=== PATIENT | male | born 1960 | race Two or more races ===

== ENCOUNTER 2022-05-29 17:41 | Emergency (ER) | payer SELFPAY ==
[~2022-05-29] VITALS: Ht 160 cm; Wt 81.2 kg
[2022-05-29] MEDS ORDERED: LORAZEPAM 1 MG TABLET ONE (18:53)
[2022-05-29] MEDS ORDERED: LORAZEPAM 0.5 MG TABLET PO ONE (19:00)
--- NOTE | 2022-05-29 19:05 | NUR ---
Received report from MARYURI Grossman.
[2022-05-29 19:29] LABS: MEAN CORPUSCULAR HEMOGLOBIN 31.1 uug (23.8-33.4); MEAN CORPUSCULAR VOLUME 91.3 fL (73.0-96.2); PLATELET COUNT (AUTO) 200 K/uL (152-348)
[2022-05-29 19:42] LABS: CREATININE 1.1 mg/dL (0.6-1.3); MAGNESIUM 2.3 mg/dL (1.8-2.4); POTASSIUM 3.3 mmol/L (3.5-5.1)
[2022-05-29] MEDS ORDERED: LORA-259 PO (19:54)
[2022-05-29] MEDS ORDERED: POTASSIUM BICARBONATE/CIT AC 25 MEQ TABLET.EFF PO ONE (20:00)
--- NOTE | 2022-05-29 20:21 | NUR ---
Patient discharged to home in stable condition. A/O x 4. NAD noted. Ambulatory with a steady gait. All belongings with patient. Written and verbal after care instructions given. Patient verbalizes understanding of instructions. Stressed follow up or return to ER for worsening s/s.
[2022-05-29 20:24] VITALS: BP 129/85
== END 2022-05-29 20:21 | disposition home or self-care (01) ==
LOC: ER 17:41
DX: F41.9 Anxiety disorder, unspecified (principal); E87.6 Hypokalemia; R94.31 Abnormal electrocardiogram [ECG] [EKG]
CPT/HCPCS: 36415; 83735; 85025; 93005; A4663

== ENCOUNTER 2023-07-02 11:39 | Emergency (ER) | payer MEDICAID, MEDICARE ==
[~2023-07-02] VITALS: Ht 165.1 cm; Wt 83.5 kg
[~2023-07-02 11:39] MED LIST: LORA-259 PO
[2023-07-02 12:29] LABS: *BILIRUBIN,URIN NEGATIVE (NEGATIVE); *BLOOD, URINE NEGATIVE (NEGATIVE); *CLARITY,URINE CLEAR (CLEAR); *COLOR,URINE YELLOW (YELLOW); *KETONES,URINE TRACE (NEGATIVE); *PROTEIN,URINE NEGATIVE (NEGATIVE); *UROBILINOGEN,URINE 0.2 E.U./dl (NORMAL); LEUKOCYTE ESTERASE ,URINE NEGATIVE (NEGATIVE); NITRITE, URINE NEGATIVE (NEGATIVE); UGLUCOSE NEGATIVE (NEGATIVE)
[2023-07-02] MEDS ORDERED: LIDOCAINE VISCUS 2% 15 ML UDC ONE (12:33)
[2023-07-02] MEDS ORDERED: MAG HYDROX/AL HYDROX/SIMETH 30 ML LIQUID UDC ONE (12:33)
[2023-07-02] MEDS ORDERED: FAMOTIDINE. 20 MG/2 ML VIAL IV ONE (12:33)
[2023-07-02] MEDS: FAMOTIDINE. 20 MG/2 ML VIAL IV ONE (12:42)
[2023-07-02] MEDS: LIDOCAINE VISCUS 2% 15 ML UDC MM ONE (12:42)
[2023-07-02] MEDS: MAG HYDROX/AL HYDROX/SIMETH 30 ML LIQUID UDC PO ONE (12:42)
[2023-07-02 12:46] LABS: BASOPHILS # (AUTO) 0.1 K/UL (0.0-0.2); BASOPHILS % (AUTO) 1.2 % (0.0-2.0); EOSINOPHILS # (AUTO) 0.2 K/uL (0.0-0.7); EOSINOPHILS % (AUTO) 3.6 % (0.0-7.0); HEMATOCRIT 41.8 % (36.7-47.1); HEMOGLOBIN 14.3 g/dL (12.5-16.3); LYMPHOCYTES # (AUTO) 2.2 K/uL (0.8-4.8); LYMPHOCYTES % (AUTO) 39.2 % (20.5-51.5); MEAN CORPUSCULAR HEMOGLOBIN 31.2 uug (23.8-33.4); MEAN CORPUSCULAR HGB CONC 34 g/dL (32.5-36.3); MEAN CORPUSCULAR VOLUME 91.2 fL (73.0-96.2); MONOCYTES # (AUTO) 0.6 K/uL (0.1-1.30); MONOCYTES % (AUTO) 9.9 % (0.0-11.0); NEUTROPHILS # (AUTO) 2.6 K/uL (1.8-8.9); NEUTROPHILS % (AUTO) 46.1 % (38.5-71.5); PLATELET COUNT (AUTO) 182 K/uL (152-348); RED BLOOD CELL COUNT(AUTO) 4.58 MIL/uL (4.06-5.63); RED CELL DISTRIBUTION WIDTH 13.2 % (12.1-16.2); WHITE BLOOD COUNT (AUTO) 5.6 K/uL (3.6-10.2)
[2023-07-02 12:56] LABS: DIFFERENTIAL COMMENT 1
[2023-07-02] MEDS ORDERED: ONDA4TAB5 PO (12:58)
[2023-07-02] MEDS ORDERED: OMEP20TA20 PO (12:58)
[2023-07-02 13:01] LABS: CALCIUM 8.7 mg/dL (8.5-10.1); CREATININE 1.1 mg/dL (0.6-1.3); POTASSIUM 3.8 mmol/L (3.5-5.1)
[2023-07-02 13:07] LABS: ALBUMIN 3.3 g/dL (3.4-5.0); BILIRUBIN,DIRECT 0.1 mg/dL (0.0-0.2); BILIRUBIN,TOTAL 0.4 mg/dL (0.2-1.0); TOTAL PROTEIN, SERUM 7.2 g/dL (6.4-8.2)
[2023-07-02 13:41] LABS: WBC,URINE NONE SEEN /HPF (0-3)
[2023-07-02 13:59] VITALS: BP 141/77; TEMP 98.1; O2SAT 97
== END 2023-07-02 14:02 | disposition home or self-care (01) ==
LOC: ER 11:39
DX: R10.13 Epigastric pain (principal); Z98.890 Other specified postprocedural states; Z79.899 Other long term (current) drug therapy
CPT/HCPCS: 99283; 96374; 80076; 80048; 81001; 83690; 85025; 36415; J3490; A4606; A4663

== ENCOUNTER 2023-11-20 13:30 | Inpatient (IN) | payer BC, MEDICARE ==
[~2023-11-20] VITALS: Ht 172.7 cm; Wt 78.8 kg
[~2023-11-20 13:30] MED LIST changes: +OMEP20TA20 PO; +ONDA4TAB5 PO
[2023-11-20 14:39] LABS: BASOPHILS # (AUTO) 0.1 K/UL (0.0-0.2); BASOPHILS % (AUTO) 0.5 % (0.0-2.0); EOSINOPHILS % (AUTO) 0.1 % (0.0-7.0); HEMATOCRIT 48.2 % (36.7-47.1); HEMOGLOBIN 16.1 g/dL (12.5-16.3); LYMPHOCYTES % (AUTO) 19.6 % (20.5-51.5); MEAN CORPUSCULAR HEMOGLOBIN 30.3 uug (23.8-33.4); MEAN CORPUSCULAR HGB CONC 34 g/dL (32.5-36.3); MEAN CORPUSCULAR VOLUME 90.5 fL (73.0-96.2); MONOCYTES # (AUTO) 1.5 K/uL (0.1-1.30); MONOCYTES % (AUTO) 9.7 % (0.0-11.0); NEUTROPHILS # (AUTO) 10.8 K/uL (1.8-8.9); NEUTROPHILS % (AUTO) 70.1 % (38.5-71.5); PLATELET COUNT (AUTO) 224 K/uL (152-348); RED BLOOD CELL COUNT(AUTO) 5.33 MIL/uL (4.06-5.63); WHITE BLOOD COUNT (AUTO) 15.5 K/uL (3.6-10.2)
[2023-11-20 14:54] LABS: CALCIUM 9.5 mg/dL (8.5-10.1); CARBON DIOXIDE 28 mmol/L (21-32); CHLORIDE 97 mmol/L (98-107); CREATININE 1.7 mg/dL (0.6-1.3); GLUCOSE 104 mg/dL (74-106); POTASSIUM 3.7 mmol/L (3.5-5.1); SODIUM SERUM 137 mmol/L (136-145); UREA NITROGEN, BLOOD 36 mg/dL (7-18)
[2023-11-20 14:59] LABS: ALANINE AMINOTRANSFERASE 25 U/L (16-63); ALBUMIN 4.4 g/dL (3.4-5.0); ALKALINE PHOSPHATASE 82 U/L (50-136); ASPARTATE AMINOTRANSFERASE 28 U/L (15-37); BILIRUBIN,TOTAL 1.1 mg/dL (0.2-1.0); TOTAL PROTEIN, SERUM 8.6 g/dL (6.4-8.2)
[2023-11-20 15:04] LABS: *BILIRUBIN,URIN 3+ (NEGATIVE); *BLOOD, URINE TRACE (NEGATIVE); *CLARITY,URINE SLIGHTLY CLOUDY (CLEAR); *COLOR,URINE DARK YELLOW (YELLOW); *KETONES,URINE 1+ (NEGATIVE); *PROTEIN,URINE 1+ (NEGATIVE); LEUKOCYTE ESTERASE ,URINE NEGATIVE (NEGATIVE); NITRITE, URINE NEGATIVE (NEGATIVE); PH,URINE 5.5 (5.0-8.0); UGLUCOSE NEGATIVE (NEGATIVE)
[2023-11-20 15:15] LABS: ETHANOL < 3 MG/DL (0-10)
[2023-11-20 15:27] LABS: *AMPHETAMINE, URINE NEGATIVE (NEGATIVE); *BARBITURATE, URINE NEGATIVE (NEGATIVE); *BENZODIAZEPINE, URINE POSITIVE (NEGATIVE); *CANNABINOID, URINE NEGATIVE (NEGATIVE); *COCCAINE, URINE NEGATIVE (NEGATIVE); *OPIATE, URINE NEGATIVE (NEGATIVE); *PHENCYCLIDINE SCREEN,URINE NEGATIVE (NEGATIVE); FENTANYL, URINE NEGATIVE (NEGATIVE)
[2023-11-20 15:28] LABS: DIFFERENTIAL COMMENT 1
[2023-11-20] MEDS: IV NORMAL SALINE 1000 ML BAG IV ONE (16:07)
[2023-11-20 16:29] LABS: BACTERIA,URINE FEW /HPF (NONE SEEN); RBC,URINE 0-3 /HPF (0-3); SQUAMOUS EPITHELIAL CELL,UR FEW /HPF (NONE SEEN); WBC,URINE 0-3 /HPF (0-3)
[2023-11-20 16:30] LABS: MUCUS,URINE MODERATE /LPF (0-FEW)
[2023-11-20] MEDS ORDERED: ONDANSETRON 4 MG/2 ML VIAL IV PRN (18:00)
[2023-11-20] MEDS ORDERED: CEFEPIME HCL 1 G VIAL ONE (18:06)
[2023-11-20] MEDS ORDERED: ENOXAPARIN SODIUM 40 MG/0.4 ML DISP.SYRIN SQ ONE (18:06)
[2023-11-20] MEDS: CEFEPIME HCL 1 G in IV DEXTROSE 5% 50 ML IV SCH (18:18)
[2023-11-20] MEDS ORDERED: PROP10TA68 (18:20)
[2023-11-20] MEDS ORDERED: QUET50TA24 PO (18:20)
[2023-11-20] MEDS ORDERED: SERT-439 (18:20)
[2023-11-20] MEDS: ENOXAPARIN SODIUM 40 MG/0.4 ML DISP.SYRIN SQ SCH (18:20)
[2023-11-20 19:40] VITALS: BP 141/80; TEMP 98; O2SAT 95
[2023-11-20] MEDS: IV NS 1000 ML 1,000 ML IV PRN (22:39)
[2023-11-20] MEDS ORDERED: BACL10TA PO (23:36)
[2023-11-20] MEDS ORDERED: HYDR-501 PO (23:36)
[2023-11-20] MEDS ORDERED: SERT50TA PO (23:36)
[2023-11-21 00:10] VITALS: BP 158/93; TEMP 98.1; O2SAT 98
[2023-11-21] MEDS: TEMAZEPAM 7.5 MG CAPSULE PO SCH (00:11)
[2023-11-21 04:50] VITALS: BP 179/99; TEMP 97.9; O2SAT 97
[2023-11-21] MEDS: LORAZEPAM 2 MG/1 ML VIAL IM ONE ×2 (05:08→16:14)
[2023-11-21 06:28] VITALS: BP 139/89
[2023-11-21] MEDS: CEFEPIME HCL 1 G in IV DEXTROSE 5% 50 ML IV SCH ×2 (06:31→14:50)
[2023-11-21 07:51] LABS: CALCIUM 8.5 mg/dL (8.5-10.1); CREATININE 1.1 mg/dL (0.6-1.3); MAGNESIUM 2.2 mg/dL (1.8-2.4); PHOSPHOROUS 3.3 mg/dL (2.5-4.9); POTASSIUM 3.6 mmol/L (3.5-5.1)
[2023-11-21 07:54] LABS: BASOPHILS # (AUTO) 0.1 K/UL (0.0-0.2); BASOPHILS % (AUTO) 0.7 % (0.0-2.0); EOSINOPHILS % (AUTO) 0.3 % (0.0-7.0); HEMATOCRIT 42.3 % (36.7-47.1); HEMOGLOBIN 14.4 g/dL (12.5-16.3); LYMPHOCYTES # (AUTO) 1.8 K/uL (0.8-4.8); LYMPHOCYTES % (AUTO) 18.1 % (20.5-51.5); MEAN CORPUSCULAR HEMOGLOBIN 30.8 uug (23.8-33.4); MEAN CORPUSCULAR HGB CONC 34 g/dL (32.5-36.3); MEAN CORPUSCULAR VOLUME 90.3 fL (73.0-96.2); MONOCYTES # (AUTO) 0.8 K/uL (0.1-1.30); MONOCYTES % (AUTO) 8.2 % (0.0-11.0); NEUTROPHILS # (AUTO) 7.1 K/uL (1.8-8.9); NEUTROPHILS % (AUTO) 72.7 % (38.5-71.5); PLATELET COUNT (AUTO) 209 K/uL (152-348); RED BLOOD CELL COUNT(AUTO) 4.69 MIL/uL (4.06-5.63); RED CELL DISTRIBUTION WIDTH 13.7 % (12.1-16.2); WHITE BLOOD COUNT (AUTO) 9.7 K/uL (3.6-10.2)
[2023-11-21 07:59] LABS: DIFFERENTIAL COMMENT 1
[2023-11-21] MEDS: ENOXAPARIN SODIUM 40 MG/0.4 ML DISP.SYRIN SQ SCH (09:58)
[2023-11-21] MEDS: QUETIAPINE FUMARATE 25 MG TABLET PO SCH (12:37)
[2023-11-21 13:22] VITALS: BP 129/91; TEMP 98.4; O2SAT 94
[2023-11-21] MEDS ORDERED: LORAZEPAM 2 MG/1 ML VIAL IV ONE (15:51)
[2023-11-21 15:56] VITALS: BP_SYST 133; BP_SYST 89; BP_DIAS 55; BP_DIAS 78; TEMP 97.4; TEMP 98.4; O2SAT 92; O2SAT 98
[2023-11-21] MEDS ORDERED: QUETIAPINE FUMARATE 25 MG TABLET PO PRN (17:00)
[2023-11-21 20:00] VITALS: BP 143/84; TEMP 98.2; O2SAT 94
[2023-11-22 05:28] VITALS: BP 156/97; TEMP 98.5; O2SAT 96
[2023-11-22] MEDS ORDERED: LORAZEPAM 0.5 MG TABLET PO PRN (19:45)
[2023-11-22] MEDS: QUETIAPINE FUMARATE 25 MG TABLET PO SCH (20:23)
[2023-11-23] MEDS: QUETIAPINE FUMARATE 25 MG TABLET PO SCH (08:13)
[2023-11-23 20:00] VITALS: BP 155/95; TEMP 98.3; O2SAT 95
[2023-11-23] MEDS: ACETAMINOPHEN 325 MG TABLET PO PRN (21:18)
[2023-11-24 06:00] VITALS: BP 158/96; TEMP 98.9; O2SAT 95
[2023-11-24 07:25] LABS: BASOPHILS # (AUTO) 0.1 K/UL (0.0-0.2); BASOPHILS % (AUTO) 0.9 % (0.0-2.0); EOSINOPHILS # (AUTO) 0.2 K/uL (0.0-0.7); EOSINOPHILS % (AUTO) 2.3 % (0.0-7.0); HEMATOCRIT 42.7 % (36.7-47.1); HEMOGLOBIN 14.4 g/dL (12.5-16.3); LYMPHOCYTES # (AUTO) 2.2 K/uL (0.8-4.8); LYMPHOCYTES % (AUTO) 29.4 % (20.5-51.5); MEAN CORPUSCULAR HEMOGLOBIN 30.4 uug (23.8-33.4); MEAN CORPUSCULAR HGB CONC 34 g/dL (32.5-36.3); MEAN CORPUSCULAR VOLUME 90.1 fL (73.0-96.2); MONOCYTES # (AUTO) 0.7 K/uL (0.1-1.30); MONOCYTES % (AUTO) 9.3 % (0.0-11.0); NEUTROPHILS # (AUTO) 4.3 K/uL (1.8-8.9); NEUTROPHILS % (AUTO) 58.1 % (38.5-71.5); PLATELET COUNT (AUTO) 204 K/uL (152-348); RED BLOOD CELL COUNT(AUTO) 4.74 MIL/uL (4.06-5.63); RED CELL DISTRIBUTION WIDTH 13.9 % (12.1-16.2); WHITE BLOOD COUNT (AUTO) 7.4 K/uL (3.6-10.2)
[2023-11-24 07:36] LABS: CREATININE 0.7 mg/dL (0.6-1.3); MAGNESIUM 2.3 mg/dL (1.8-2.4); PHOSPHOROUS 2.5 mg/dL (2.5-4.9); POTASSIUM 3.3 mmol/L (3.5-5.1)
[2023-11-24 07:39] LABS: DIFFERENTIAL COMMENT 1
[2023-11-24 08:00] VITALS: BP 135/84; TEMP 98.3; O2SAT 96
[2023-11-24 08:09] LABS: CALCIUM 8.8 mg/dL (8.5-10.1)
[2023-11-24] MEDS: POTASSIUM CHLORIDE 20 MEQ TAB.PRT.SR PO ONE (11:39)
[2023-11-24 12:00] VITALS: BP 123/76; TEMP 98.6; O2SAT 96
[2023-11-24 15:58] VITALS: BP 117/77; TEMP 98.6; O2SAT 94
[2023-11-24 20:16] VITALS: BP 145/85; TEMP 98.2; O2SAT 95
[2023-11-25 06:06] VITALS: BP 134/88; TEMP 98.2; O2SAT 95
[2023-11-25] MEDS ORDERED: QUET25TA36 PO ×2 (11:11)
[2023-11-25 12:09] VITALS: TEMP 99; O2SAT 95
== END 2023-11-25 15:30 | disposition home or self-care (01) | DRG 640 ==
LOC: ER 13:30 → MEDSURG3 18:24 → TELE3 23:10 → MEDSURG3 11-21 13:03
PROVIDERS: ADMIT Nurse Practitioner Acute Care; ATTEND Nurse Practitioner Acute Care
DX: E86.0 Dehydration (principal); G92.8 Other toxic encephalopathy; N17.0 Acute kidney failure with tubular necrosis; F14.151 Cocaine abuse with cocaine-induced psychotic disorder with hallucinations; F03.92 Unspecified dementia, unspecified severity, with psychotic disturbance; E78.5 Hyperlipidemia, unspecified; D72.829 Elevated white blood cell count, unspecified; Z91.83 Wandering in diseases classified elsewhere; K21.9 Gastro-esophageal reflux disease without esophagitis; Z79.899 Other long term (current) drug therapy; Z78.1 Physical restraint status
CPT/HCPCS: 36415; 70450; 71045; 83735; 84100; 85025; 93005; A4663; G0378; G0480; J0692; J1650; J2060; J7040